=== PATIENT | female | born 1960 | race Caucasian/White ===

== ENCOUNTER 2022-01-04 09:42 | Emergency (ER) | payer BC ==
[~2022-01-04] VITALS: Ht 170.2 cm; Wt 93.6 kg
[~2022-01-04 09:42] MED LIST: ATENOLOL; CIPRO; DARVOCET N; FLUTICASONE; IBUPROFEN600 MG PO; OXYCODONE HCL5 MG PO; PYRIDIUM PO
[2022-01-04 10:01] VITALS: TEMP 97.9
[2022-01-04] MEDS ORDERED: NORCO 325 MG-51 TAB PO (11:13)
[2022-01-04] MEDS ORDERED: NORFLEX 10100 MG/TAB PO (11:13)
[2022-01-04 11:24] VITALS: BP 150/83; PULSE 81
== END 2022-01-04 11:24 | disposition home or self-care (01) ==
LOC: COL.ER 09:42
DX: S16.1XXA Strain of muscle, fascia and tendon at neck level, initial encounter (principal); B02.9 Zoster without complications; F17.210 Nicotine dependence, cigarettes, uncomplicated
CPT/HCPCS: J1885; J2360

== ENCOUNTER 2024-02-24 15:53 | Emergency (ER) | payer BC ==
[~2024-02-24] VITALS: Ht 170.2 cm; Wt 97.7 kg
[~2024-02-24 15:53] MED LIST changes: +NORCO 325 MG-51 TAB PO; +NORFLEX 10100 MG/TAB PO
[2024-02-24 16:06] VITALS: TEMP 98.4
[2024-02-24] MEDS ORDERED: Metoprolol Tartrate 25 MG TAB PO ONE (18:30)
[2024-02-24] MEDS ORDERED: amLODIPine 5 MG TAB PO ONE (18:30)
[2024-02-24 18:52] LABS: BASO # 0.1 K/mm3 (0.0-0.2); BASO % 0.7 % (0.0-2.0); EOS # 0.1 K/mm3 (0.0-0.7); EOS % 0.8 % (0.0-4.0); GRAN # 5.9 K/mm3 (1.4-6.5); GRAN % 60.6 % (42.2-75.2); HEMATOCRIT 44.1 % (37.0-47.0); HEMOGLOBIN 14.9 g/dl (12.5-16.0); LYMPH % 30.8 % (20.0-51.0); MEAN CELL VOLUME 89 fl (80.0-100.0); MEAN CORPUSCULAR HEMOGLOBIN 30 pg (27-31); MEAN CORPUSCULAR HGB CONC 34 g/dl (33.0-37.0); MEAN PLATELET VOLUME 9.7 fl (7.4-10.4); MONO # 0.7 K/mm3 (0.1-0.6); MONO % 6.9 % (1.7-9.3); PLATELET COUNT 247 K/mm3 (130-400); RED BLOOD COUNT 4.96 M/mm3 (4.10-5.30); REDCELL DISTRIBUTION WIDTH-CV 13.5 % (11.5-14.5)
[2024-02-24 19:31] LABS: ALBUMIN 3.8 g/dL (3.4-4.8); BILIRUBIN,TOTAL 0.4 mg/dL (0.2-1.2); CALCIUM 9.7 mg/dL (8.4-10.2); CREATININE, serum 0.82 mg/dL (0.57-1.11); TOTAL PROTEIN 7.3 g/dl (6.2-8.1)
[2024-02-24] MEDS ORDERED: NORVASC 5MG5 MG/TAB PO (20:11)
[2024-02-24] MEDS ORDERED: DESYREL 50MG50 MG PO (20:11)
[2024-02-24] MEDS ORDERED: LORazepam 0.5 MG TAB PO ONE (20:15)
[2024-02-24 21:14] VITALS: BP 143/96; PULSE 68
== END 2024-02-24 21:14 | disposition home or self-care (01) ==
LOC: COL.ER 15:53
PROVIDERS: Family Medicine
DX: I10 Essential (primary) hypertension (principal); I49.3 Ventricular premature depolarization; F17.200 Nicotine dependence, unspecified, uncomplicated